=== PATIENT | female | born 1985 | race African-American/Black ===

== ENCOUNTER 2017-09-24 08:41 | Emergency (ER) | payer MEDICAID ==
[~2017-09-24] VITALS: Ht 154.9 cm; Wt 86.0 kg
[~2017-09-24 08:41] MED LIST: MACR100C2 PO; TERC0.8C VAGINAL
[2017-09-24 08:42] VITALS: BP 163/109; PULSE 70; RESP 16; TEMP 99; O2SAT 96
--- NOTE | 2017-09-24 09:18 | PD ---
HPI Chief Complaint: ENT Complaint Time Seen by Provider: 09:05 Travel History International Travel<30 days: No Contact w/Intl Traveler<30days: No Traveled to known affect area: No History of Present Illness HPI This is a 32-year-old female here with painful blisters to her upper lip 3 days. Symptom severity is moderate. She describes the pain as "burning" and constant. No fever chills. Similar symptoms in the past with cold sores. Denies any eye pain or visual changes. No aggravating or alleviating factors. Has not attempted any OTC medications. PFSH Past Medical History Medical History: Denies Significant Hx Blood Disorders: No Cancer: No Cardiovascular Problems: No Diabetes: No Diminished Hearing: No Endocrine: No Genitourinary: No Hepatitis: No Hiatal Hernia: No Immune Disorder: No Kidney Stones: Yes Medical other: Yes Musculoskeletal: No Neurologic: No Psychiatric: No Reproductive: No Respiratory: No Thyroid Disease: No Influenza Vaccination: No ?: Not LMP: 09/10/2017 : 4 Para: 2 Miscarriage: 1 : 1 Tubal Ligation: Yes Past Surgical History Abdominal Surgery: No AICD: No Cardiac Surgery: No Ear Surgery: No Endocrine Surgery: No Eye Surgery: No Genitourinary Surgery: No Gynecologic Surgery: Yes (tubal LIGATION) Joint Replacement: No Oral Surgery: No Pacemaker: No Thoracic Surgery: No Other Surgery: Yes (TUBAL LIGATION) Social History Alcohol Use: No Tobacco Use: No Substance Use: No Allergies-Medications (Allergen,Severity, Reaction): Coded Allergies: promethazine (Unverified Allergy, Severe, Itching, DYSTONIC REACTION, 09/24) *MDRO Multi-Drug Resistant Organism (Verified Allergy, Unknown, 09/24/17) MRSA Reported Meds & Prescriptions Reported Meds & Active Scripts Active No Active Prescriptions or Reported Medications Review of Systems Except as stated in HPI: all other systems reviewed are Neg General / Constitutional: No: Fever Eyes: No: Visual changes HENT: No: Headaches Cardiovascular: No: Chest Pain or Discomfort Respiratory: No: Shortness of Breath Gastrointestinal: No: Abdominal Pain Genitourinary: No: Dysuria Musculoskeletal: No: Pain Skin: No Rash Physical Exam Narrative GENERAL: Alert and well-appearing 32-year-old female SKIN: Warm and dry. Cluster vesicular lesions to the upper lip HEAD: Normocephalic. EYES: No injection or drainage. ENT; cluster of vesicular lesions to the left upper lip. No pharyngeal erythema. No oral ulcers. Uvula is midline. Airways patent. NECK: Supple, trachea midline. No lymphadenopathy. CARDIOVASCULAR: Regular rate and rhythm RESPIRATORY: Breath sounds equal bilaterally. No accessory muscle use. GASTROINTESTINAL: nondistended. MUSCULOSKELETAL: No cyanosis, or edema. Data Data Last Documented VS Vital Signs Date Time Temp Pulse Resp B/P (MAP) Pulse Ox O2 Delivery O2 Flow Rate FiO2 09/24/17 08:42 99.0 70 16 163/109 (127) 96 MDM Medical Decision Making Medical Screen Exam Complete: Yes Emergency Medical Condition: Yes Differential Diagnosis Herpes labialis, impetigo, other Narrative Course 32-year-old female here with herpes labialis. She will be treated with Valtrex. Diagnosis Primary Impression: Herpes labialis Referrals: Primary Care Physician Additional Instructions: Medication as directed. Follow-up with your primary doctor. Return if new or worsening symptoms. Scripts Mupirocin Topical (Bactroban Topical) 22 Gm Cream 1 APPLIC TOPICAL TID for Mgmt Bacterial Infection, #1 TUBE 0 Refills Prov: Pati Eastman 09/24/17 Valacyclovir (Valtrex) 1,000 Mg Tab 2000 MG PO BID for Mgmt Viral Infection for 1 Day, #1 TAB 0 Refills Prov: Pati Eastman 09/24/17 Disposition: 01 DISCHARGE HOME Condition: Stable Pati Eastman Sep 24, 2017 09:17
[2017-09-24] MEDS ORDERED: VALT1TAB PO (09:25)
[2017-09-24] MEDS ORDERED: MUPI2%T TOPICAL (09:25)
== END 2017-09-24 09:40 | disposition home or self-care (01) ==
LOC: PHED 08:41
DX: B00.1 Herpesviral vesicular dermatitis (principal)
CPT/HCPCS: 99283

== ENCOUNTER 2017-10-05 05:31 | Emergency (ER) | payer MEDICAID ==
[~2017-10-05] VITALS: Ht 154.9 cm; Wt 86.3 kg
[~2017-10-05 05:31] MED LIST changes: -MACR100C2 PO; +MUPI2%T TOPICAL; -TERC0.8C VAGINAL; +VALT1TAB PO
[2017-10-05 05:36] VITALS: PULSE 65; RESP 24; TEMP 97.9; O2SAT 100
[2017-10-05] MEDS ORDERED: SODIUM CHLOR 0.9% 1000 ML INJ 1,000 ML IV SCH ×2 (05:52→07:41)
[2017-10-05 06:00] VITALS: BP 194/105; PULSE 85; RESP 20; O2SAT 100
[2017-10-05] MEDS ORDERED: ONDANSETRON HCL 4 MG/2 ML VIAL IVP ONE ×2 (06:00→07:45)
[2017-10-05] MEDS ORDERED: MORPHINE SULFATE 4 MG/ML INJ IV PUSH ONE ×3 (06:00→07:45)
[2017-10-05] MEDS ORDERED: SODIUM CHLORIDE 0.9% FLUSH 10 ML FLUSH IV FLUSH PRN (06:00)
--- NOTE | 2017-10-05 06:00 | PD ---
HPI Chief Complaint: Abdominal Pain Time Seen by Provider: 05:51 Travel History International Travel<30 days: No Contact w/Intl Traveler<30days: No Traveled to known affect area: No History of Present Illness HPI The patient is a 32-year-old female that complains of abdominal pain since 11 PM yesterday. The pain is mostly on the right but it is bilateral upper quadrant pain as well. The pain radiates to her back. She claims a pain of 10/ 10 for this sharp pain. She denies any nausea or vomiting or fever. PFSH Past Medical History Blood Disorders: No Cancer: No Cardiovascular Problems: No Diabetes: No Diminished Hearing: No Endocrine: No Genitourinary: No Hepatitis: No Hiatal Hernia: No Immune Disorder: No Kidney Stones: Yes Musculoskeletal: No Neurologic: No Psychiatric: No Reproductive: No Respiratory: No Thyroid Disease: No ?: Not : 4 Para: 2 Miscarriage: 1 : 1 Tubal Ligation: Yes Past Surgical History Abdominal Surgery: No AICD: No Cardiac Surgery: No Ear Surgery: No Endocrine Surgery: No Eye Surgery: No Genitourinary Surgery: No Gynecologic Surgery: Yes (tubal LIGATION) Joint Replacement: No Oral Surgery: No Pacemaker: No Thoracic Surgery: No Other Surgery: Yes (TUBAL LIGATION) Social History Alcohol Use: Yes (occ) Tobacco Use: No Substance Use: No Allergies-Medications (Allergen,Severity, Reaction): Coded Allergies: promethazine (Unverified Allergy, Severe, Itching, DYSTONIC REACTION, 09/24) *MDRO Multi-Drug Resistant Organism (Verified Allergy, Unknown, 09/24/17) MRSA Reported Meds & Prescriptions Reported Meds & Active Scripts Active No Active Prescriptions or Reported Medications Review of Systems Except as stated in HPI: all other systems reviewed are Neg Physical Exam Narrative GENERAL: The patient is alert, oriented 3 and moderate to severe distress with her abdominal pain. Her vital signs show respiratory rate of 24 but otherwise are normal. SKIN: Focused skin assessment warm/dry. No skin rash is seen. HEAD: Atraumatic. Normocephalic. EYES: Pupils equal and round. No scleral icterus. No injection or drainage. ENT: No nasal bleeding or discharge. Mucous membranes pink and moist. NECK: Trachea midline. No JVD. CARDIOVASCULAR: Regular rate and rhythm. No murmur appreciated. RESPIRATORY: No accessory muscle use. Clear to auscultation. Breath sounds equal bilaterally. GASTROINTESTINAL: Abdomen soft, with tenderness to direct palpation in the bilateral upper quadrants, nondistended. Hepatic and splenic margins not palpable. No guarding or rebound is present. Ricardo sign is questionably positive. MUSCULOSKELETAL: No obvious deformities. No clubbing. No cyanosis. No edema. NEUROLOGICAL: Awake and alert. No obvious cranial nerve deficits. Motor grossly within normal limits. Normal speech. PSYCHIATRIC: Appropriate mood and affect; insight and judgment normal. Data Data Last Documented VS Vital Signs Date Time Temp Pulse Resp B/P (MAP) Pulse Ox O2 Delivery O2 Flow Rate FiO2 10/05/17 06:00 85 20 194/105 (134) 100 10/05/17 05:36 97.9 Orders Orders Complete Blood Count With Diff (10/05/17 05:52) Comprehensive Metabolic Panel (10/05/17 05:52) Lipase (10/05/17 05:52) Urinalysis - C+S If Indicated (10/05/17 05:52) Ct Abd/Pel W Iv Contrast(Rout) (10/05/17 05:52) Iv Access Insert/Monitor (10/05/17 05:52) Ecg Monitoring (10/05/17 05:52) Oximetry (10/05/17 05:52) Morphine Inj (Morphine Inj) (10/05/17 06:00) Ondansetron Inj (Zofran Inj) (10/05/17 06:00) Sodium Chlor 0.9% 1000 Ml Inj (Ns 1000 M (10/05/17 05:52) Sodium Chloride 0.9% Flush (Ns Flush) (10/05/17 06:00) Electrocardiogram (10/05/17 05:52) Ed Urine Pregnancytest Poc (10/05/17 06:22) Morphine Inj (Morphine Inj) (10/05/17 06:45) Ondansetron Inj (Zofran Inj) (10/05/17 06:45) Iohexol 350 Inj (Omnipaque 350 Inj) (10/05/17 07:06) Labs Laboratory Tests Test 10/05/17 05:45 5 06:20 White Blood Count 14.8 TH/MM3 Red Blood Count 4.68 MIL/MM3 Hemoglobin 13.5 GM/DL Hematocrit 40.5 % Mean Corpuscular Volume 86.7 FL Mean Corpuscular Hemoglobin 28.9 PG Mean Corpuscular Hemoglobin Concent 33.4 % Red Cell Distribution Width 11.8 % Platelet Count 320 TH/MM3 Mean Platelet Volume 8.7 FL Neutrophils (%) (Auto) 49.9 % Lymphocytes (%) (Auto) 41.2 % Monocytes (%) (Auto) 6.6 % Eosinophils (%) (Auto) 0.8 % Basophils (%) (Auto) 1.5 % Neutrophils # (Auto) 7.4 TH/MM3 Lymphocytes # (Auto) 6.1 TH/MM3 Monocytes # (Auto) 1.0 TH/MM3 Eosinophils # (Auto) 0.1 TH/MM3 Basophils # (Auto) 0.2 TH/MM3 CBC Comment AUTO DIFF Differential Total Cells Counted 100 Neutrophils % (Manual) 43 % Lymphocytes % 50 % Monocytes % 7 % Neutrophils # (Manual) 6.4 TH/MM3 Differential Comment FINAL DIFF MANUAL Platelet Estimate NORMAL Platelet Morphology Comment NORMAL Red Cell Morphology Comment NORMAL Blood Urea Nitrogen 17 MG/DL Creatinine 1.30 MG/DL Random Glucose 142 MG/DL Total Protein 7.7 GM/DL Albumin 3.8 GM/DL Calcium Level 8.7 MG/DL Alkaline Phosphatase 127 U/L Aspartate Amino Transf (AST/SGOT) 60 U/L Alanine Aminotransferase (ALT/SGPT) 51 U/L Total Bilirubin 0.4 MG/DL Sodium Level 136 MEQ/L Potassium Level 3.0 MEQ/L Chloride Level 102 MEQ/L Carbon Dioxide Level 26.2 MEQ/L Anion Gap 8 MEQ/L Estimat Glomerular Filtration Rate 58 ML/MIN Lipase 144 U/L Urine Color YELLOW Urine Turbidity SL CLOUDY Urine pH 7.0 Urine Specific [place] 1.020 Urine Protein NEG mg/dL Urine Glucose (UA) 100 mg/dL Urine Ketones NEG mg/dL Urine Occult Blood TRACE Urine Nitrite NEG Urine Bilirubin NEG Urine Urobilinogen 0.2 MG/DL Urine Leukocyte Esterase NEG Urine RBC 3-5 /hpf Urine WBC 0-2 /hpf Urine Squamous Epithelial Cells 6-8 /hpf Urine Bacteria NONE /hpf Microscopic Urinalysis Comment CULT NOT INDICATED MDM Medical Decision Making Medical Screen Exam Complete: Yes Emergency Medical Condition: Yes Medical Record Reviewed: Yes Interpretation(s) The EKG shows sinus rhythm with a rate of [address] elevation or depression. Differential Diagnosis Cholecystitis, colitis, pyelonephritis, abdominal pain etiology undetermined Narrative Course It is now 0719 and the patient is transferred to Dr. Stinson. Scripts No Active Prescriptions or Reported Meds Lamonte Travis MD October 05, 2017 06:00
[2017-10-05 06:12] LABS: AUTOMATED NEUTROPHIL # 7.4 TH/MM3 (1.8-7.7); BASOPHIL # 0.2 TH/MM3 (0-0.2); BASOPHIL % 1.5 % (0.0-2.0); EOSINOPHIL # 0.1 TH/MM3 (0-0.4); EOSINOPHIL % 0.8 % (0.0-4.0); HEMATOCRIT 40.5 % (35.0-46.0); HEMOGLOBIN 13.5 GM/DL (11.6-15.3); LYMPH % 41.2 % (9.0-44.0); LYMPHOCYTE # 6.1 TH/MM3 (1.0-4.8); MEAN CELL VOLUME 86.7 FL (80.0-100.0); MEAN CORPUSCULAR HEMOGLOBIN 28.9 PG (27.0-34.0); MEAN CORPUSCULAR HGB CONC 33.4 % (32.0-36.0); MEAN PLATELET VOLUME 8.7 FL (7.0-11.0); MONO % 6.6 % (0.0-8.0); NEUT % 49.9 % (16.0-70.0); PLATELET COUNT 320 TH/MM3 (150-450); RED BLOOD COUNT 4.68 MIL/MM3 (4.00-5.30); RED CELL DISTRIBUTION WIDTH 11.8 % (11.6-17.2); WHITE BLOOD COUNT 14.8 TH/MM3 (4.0-11.0)
[2017-10-05 06:18] LABS: CHLORIDE 102 MEQ/L (98-107); SODIUM (NA) 136 MEQ/L (136-145)
[2017-10-05 06:21] LABS: CALCIUM 8.7 MG/DL (8.5-10.1)
[2017-10-05 06:22] LABS: ALBUMIN 3.8 GM/DL (3.4-5.0); BICARBONATE 26.2 MEQ/L (21.0-32.0); BLOOD UREA NITROGEN 17 MG/DL (7-18); GLUCOSE,RANDOM 142 MG/DL (74-106)
[2017-10-05 06:24] LABS: ALT (GPT) 51 U/L (10-53)
[2017-10-05 06:25] LABS: AST (GOT) 60 U/L (15-37); GLOMERULAR FILTRATION RATE 58 ML/MIN (>89)
[2017-10-05 06:26] LABS: TOTAL BILIRUBIN ADULT 0.4 MG/DL (0.2-1.0); TOTAL PROTEIN 7.7 GM/DL (6.4-8.2)
[2017-10-05 06:27] LABS: ALKALINE PHOSPHATASE 127 U/L (45-117)
[2017-10-05 06:29] LABS: BILIRUBIN, URINE NEG (NEG); BLOOD, URINE TRACE (NEG); GLUCOSE,URINE 100 mg/dL (NEG); KETONE, URINE NEG (NEG); NITRITE,URINE NEG (NEG); URINE COLOR YELLOW (YELLW/STRAW); URINE LEUKOCYTE ESTERASE NEG (NEG)
[2017-10-05 06:37] LABS: WBC, URINE 0-2 /hpf (0-5)
[2017-10-05 06:40] LABS: LYMPHOCYTES 50 % (9-44); MONOCYTES 7 % (0-8); NEUTROPHIL # MANUAL DIFF 6.4 TH/MM3 (1.8-7.7); POLYS (SEG NEUTROPHILS) 43 % (16-70)
[2017-10-05] MEDS ORDERED: ONDANSETRON HCL 4 MG/2 ML VIAL IV ONE (06:45)
[2017-10-05] MEDS ORDERED: IOHEXOL 350 MG/ML 10 ML VIAL (for RAD DIAG) IVCONTRAST ONE (07:06)
--- NOTE | 2017-10-05 07:18 | RADRPT ---
EXAM DATE/TIME: 10/05/2017 06:57 [facility] COMPARISON: No previous studies available for comparison. INDICATIONS : Epigastric and right lower quadrant pain. IV CONTRAST: 80 cc Omnipaque 350 (iohexol) IV ORAL CONTRAST: No oral contrast ingested. RADIATION DOSE: 15.55 CTDIvol (mGy) MEDICAL HISTORY : Renal calculi. SURGICAL HISTORY : Tubal ligation. ENCOUNTER: Initial ACUITY: 1 day PAIN SCALE: 10/10 LOCATION: Right lower quadrant TECHNIQUE: Volumetric scanning of the abdomen and pelvis was performed. Using automated exposure control and ad justment of the mA and/or kV according to patient size, radiation dose was kept as low as reasonably achievable to obtain optimal diagnostic quality images. DICOM format image data is available electro nically for review and comparison. FINDINGS: LOWER LUNGS: The visualized lower lungs are clear. LIVER: Homogeneous density without lesion. There is no dilation of the biliary tree. No calcified gallston es. SPLEEN: Normal size without lesion. PANCREAS: Within normal limits. KIDNEYS: Normal in size and shape. There is no mass or hydronephrosis. A 3 mm nonobstructing stone is present in the left lower pole collecting system. ADRENAL GLANDS: Within normal limits. VASCULAR: There is no aortic aneurysm. BOWEL/MESENTERY: The stomach, small bowel, and colon demonstrate no acute abnormality. There is no free intraperitone al air. Appendix is normal. There is trace free fluid in the pelvis. ABDOMINAL WALL: Within normal limits. RETROPERITONEUM: There is no lymphadenopathy. BLADDER: No wall thickening or mass. REPRODUCTIVE: Within normal limits. INGUINAL: There is no lymphadenopathy or hernia. MUSCULOSKELETAL: There is an area of sclerosis in the left superior pubic ramus. CONCLUSION: 1. No acute abnormalities identified to explain the clinical symptoms. The appendix has a normal appe arance. Trace free fluid is present in the pelvis which is a nonspecific finding but could be physiol ogic. 2. There is a 3 mm nonobstructing left renal stone. Gregory Venegas MD on October 05, 2017 at 7:09 Board Certified Radiologist. This report was verified electronically.
[2017-10-05] MEDS ORDERED: ALUMINUM/MAGNESIUM/SIMETH 30 ML CUP PO ONE (07:45)
[2017-10-05] MEDS ORDERED: KETOROLAC TROMETHAMINE 30 MG/ML (IVP) VIAL IVP ONE (07:45)
[2017-10-05] MEDS ORDERED: LIDOCAINE VISCOUS 2% SOLN 15 ML UDC PO ONE (07:45)
[2017-10-05] MEDS ORDERED: DICYCLOMINE HCL 20 MG/2 ML VIAL IM ONE (07:45)
[2017-10-05 07:47] VITALS: BP 166/93; PULSE 68; RESP 18; O2SAT 100
[2017-10-05] MEDS ORDERED: DICY10 PO (07:55)
--- NOTE | 2017-10-05 07:56 | PD ---
Data Data Last Documented VS Vital Signs Date Time Temp Pulse Resp B/P (MAP) Pulse Ox O2 Delivery O2 Flow Rate FiO2 10/05/17 07:47 68 18 166/93 (117) 100 Room Air 10/05/17 05:36 97.9 Orders Orders Complete Blood Count With Diff (10/05/17 05:52) Comprehensive Metabolic Panel (10/05/17 05:52) Lipase (10/05/17 05:52) Urinalysis - C+S If Indicated (10/05/17 05:52) Ct Abd/Pel W Iv Contrast(Rout) (10/05/17 05:52) Iv Access Insert/Monitor (10/05/17 05:52) Ecg Monitoring (10/05/17 05:52) Oximetry (10/05/17 05:52) Morphine Inj (Morphine Inj) (10/05/17 06:00) Ondansetron Inj (Zofran Inj) (10/05/17 06:00) Sodium Chlor 0.9% 1000 Ml Inj (Ns 1000 M (10/05/17 05:52) Sodium Chloride 0.9% Flush (Ns Flush) (10/05/17 06:00) Electrocardiogram (10/05/17 05:52) Ed Urine Pregnancytest Poc (10/05/17 06:22) Morphine Inj (Morphine Inj) (10/05/17 06:45) Ondansetron Inj (Zofran Inj) (10/05/17 06:45) Iohexol 350 Inj (Omnipaque 350 Inj) (10/05/17 07:06) Morphine Inj (Morphine Inj) (10/05/17 07:45) Ondansetron Inj (Zofran Inj) (10/05/17 07:45) Sodium Chlor 0.9% 1000 Ml Inj (Ns 1000 M (10/05/17 07:41) Dicyclomine Inj (Bentyl Inj) (10/05/17 07:45) Ketorolac Inj (Toradol Inj) (10/05/17 07:45) Al-Mag Hy-Si 40-40-4 Mg/Ml Liq (Mag-Al P (10/05/17 07:45) Lidocaine 2% Viscous (Xylocaine 2% Visco (10/05/17 07:45) Labs Laboratory Tests Test 10/05/17 05:45 10/05/17 06:20 White Blood Count 14.8 TH/MM3 Red Blood Count 4.68 MIL/MM3 Hemoglobin 13.5 GM/DL Hematocrit 40.5 % Mean Corpuscular Volume 86.7 FL Mean Corpuscular Hemoglobin 28.9 PG Mean Corpuscular Hemoglobin Concent 33.4 % Red Cell Distribution Width 11.8 % Platelet Count 320 TH/MM3 Mean Platelet Volume 8.7 FL Neutrophils (%) (Auto) 49.9 % Lymphocytes (%) (Auto) 41.2 % Monocytes (%) (Auto) 6.6 % Eosinophils (%) (Auto) 0.8 % Basophils (%) (Auto) 1.5 % Neutrophils # (Auto) 7.4 TH/MM3 Lymphocytes # (Auto) 6.1 TH/MM3 Monocytes # (Auto) 1.0 TH/MM3 Eosinophils # (Auto) 0.1 TH/MM3 Basophils # (Auto) 0.2 TH/MM3 CBC Comment AUTO DIFF Differential Total Cells Counted 100 Neutrophils % (Manual) 43 % Lymphocytes % 50 % Monocytes % 7 % Neutrophils # (Manual) 6.4 TH/MM3 Differential Comment FINAL DIFF MANUAL Platelet Estimate NORMAL Platelet Morphology Comment NORMAL Red Cell Morphology Comment NORMAL Blood Urea Nitrogen 17 MG/DL Creatinine 1.30 MG/DL Random Glucose 142 MG/DL Total Protein 7.7 GM/DL Albumin 3.8 GM/DL Calcium Level 8.7 MG/DL Alkaline Phosphatase 127 U/L Aspartate Amino Transf (AST/SGOT) 60 U/L Alanine Aminotransferase (ALT/SGPT) 51 U/L Total Bilirubin 0.4 MG/DL Sodium Level 136 MEQ/L Potassium Level 3.0 MEQ/L Chloride Level 102 MEQ/L Carbon Dioxide Level 26.2 MEQ/L Anion Gap 8 MEQ/L Estimat Glomerular Filtration Rate 58 ML/MIN Lipase 144 U/L Urine Color YELLOW Urine Turbidity SL CLOUDY Urine pH 7.0 Urine Specific [place] 1.020 Urine Protein NEG mg/dL Urine Glucose (UA) 100 mg/dL Urine Ketones NEG mg/dL Urine Occult Blood TRACE Urine Nitrite NEG Urine Bilirubin NEG Urine Urobilinogen 0.2 MG/DL Urine Leukocyte Esterase NEG Urine RBC 3-5 /hpf Urine WBC 0-2 /hpf Urine Squamous Epithelial Cells 6-8 /hpf Urine Bacteria NONE /hpf Microscopic Urinalysis Comment CULT NOT INDICATED [facility] Medical Record Reviewed: Yes Supervised Visit with JENNIFER: No Narrative Course CBC & BMP Diagram 10/05/17 05:45 Total Protein 7.7, Albumin 3.8, Calcium Level 8.7, Alkaline Phosphatase 127 H, Aspartate Amino Transf (AST/SGOT) 60 H, Alanine Aminotransferase (ALT/SGPT) 51, Total Bilirubin 0.4 Urinalysis shows no UTI Last Impressions Abdomen/Pelvis CT 10/05/17 0552 Signed Impressions: Service Date/Time: Thursday, October 05, 2017 06:57 - CONCLUSION: 1. No acute abnormalities identified to explain the clinical symptoms. The appendix has a normal appearance. Trace free fluid is present in the pelvis which is a nonspecific finding but could be physiologic. 2. There is a 3 mm nonobstructing left renal stone. Gregory Venegas MD Patient reports marginal improvement at about 7:45 AM. She notes eating a sandwich from [employer] yesterday and believes maybe it was related to a subsequent bout of diarrhea lasting a few hours. She's had no fever. No vomiting. No vaginal bleeding. In this scenario I think presentation is most in keeping with a gastrointestinal etiology ultrasound to rule out torsion would be low yield. We'll focus on symptom control which is in keeping the patient's expectations. Diagnosis Primary Impression: Diarrhea Qualified Codes: R19.7 - Diarrhea, unspecified Additional Impression: Hypokalemia Referrals: Primary Care Physician call for appointment Med/Other Pt SpecificInfo: Prescription(s) given Scripts Dicyclomine (Bentyl) 10 Mg Cap 10 MG PO TID Y for Bowel Management, #20 CAP 0 Refills Prov: Carlos Stinson MD 10/05/17 Disposition: 01 DISCHARGE HOME Condition: Stable Carlos Stinson MD October 05, 2017 07:56
[2017-10-05] MEDS ORDERED: POTASSIUM CHLORIDE 20 MEQ CONTROLLED RELEASE TAB PO ONE (08:00)
[2017-10-05 08:58] VITALS: BP 121/74; PULSE 70; RESP 16; O2SAT 95
[2017-10-05 09:02] VITALS: RESP 16
--- NOTE | 2017-10-05 12:09 | EKG ---
Date Performed: 10/05/2017 Time Performed: 05:51:14 PTAGE: 32 years EKG: Sinus rhythm NORMAL ECG NO PREVIOUS TRACING DOCTOR: Marco Antonio Connors Interpretating Date/Time 10/05/2017 12:07:01
== END 2017-10-05 09:23 | disposition home or self-care (01) ==
LOC: PHED 05:31
DX: R19.7 Diarrhea, unspecified (principal); E87.6 Hypokalemia; N20.0 Calculus of kidney; Z87.442 Personal history of urinary calculi
CPT/HCPCS: 74177; 80053; 81001; 83690; 84703; 85007; 85027; 93005; 96361; 96372; 96374; 96375; 96376; 99284; J0500; J1885; J2270; J2405; J7030; Q9967